=== PATIENT | male | born 1955 | race Caucasian/White ===

== ENCOUNTER 2021-02-20 10:54 | Outpatient (REF) | payer MEDICARE, SELFPAY ==
--- NOTE | ~2021-02-20 | XR_ITS ---
EXAMINATION: XR LUMBOSACRAL SPINE CLINICAL INFORMATION: Lower back pain COMPARISON: None TECHNIQUE: Three views of the lumbosacral spine. FINDINGS: Mild anterior wedging T12-L1 chronic appearing. Advanced spondylosis with bulky spurring with severe disc space narrowing L4-L5 and L5-S1. No significant subluxation. Minor degenerative retrolisthesis L2-L3 4 2 to 3 mm. XR/XR lumbar spine 2-3V IMPRESSION: Degenerative changes and old appearing moderate compression fractures as above.
== END 2021-02-20 10:55 | disposition home or self-care (01) ==
LOC: HO.XRAY 10:54
PROVIDERS: PCP Internal Medicine Rheumatology; Visit Provider Nurse Practitioner Family
DX: M47.816 Spondylosis without myelopathy or radiculopathy, lumbar region (principal)
CPT/HCPCS: 72100; 99202

== ENCOUNTER → 2021-03-26 15:35 | Outpatient (BNVA) | payer MEDICARE, SELFPAY | PROVIDERS: PCP Family Medicine; Visit Provider Nurse Practitioner Family | DX: M47.816 Spondylosis without myelopathy or radiculopathy, lumbar region (principal); M25.50 Pain in unspecified joint; M54.16 Radiculopathy, lumbar region | CPT/HCPCS: 99212 ==

== ENCOUNTER 2021-04-16 13:32 | Outpatient (REF) | payer MEDICARE, SELFPAY ==
--- NOTE | ~2021-04-16 | CT_ITS ---
EXAMINATION: CT LUMBAR SPINE WITHOUT CONTRAST CLINICAL INFORMATION: Radiculopathy. COMPARISON: None TECHNIQUE: Axial 2 mm thin and reformatted 2 mm thin sagittal and coronal images of the lumbar spine were obtained without contrast. This CT examination was performed using dose optimization techniques as appropriate, variously including the following: *Automated exposure control *Adjustment of mA and/or kV according to patient size (this includes techniques or standardized protocols for targeted exams where dose is matched to indication/reason for exam; i.e. extremities or head) *Use of iterative reconstruction technique DLP; 470 mGy-cm FINDINGS: There is normal lumbar lordosis. The vertebral heights are normal. There is mild retrolisthesis of L3 over L4. The rest of the vertebral alignment is normal. There is loss of disc height with vacuum disc phenomena at every disc level. At the L1-L2, L2-L3 disc levels, there is no significant disc bulge, herniation or spinal stenosis. At the L3-L4 disc level, there is mild diffuse bulge without spinal canal stenosis. The neural foramina are patent bilaterally. At the L4-L5 disc level, there is a broad-based diffuse bulge with posterior spondylosis. No evidence of disc herniation or spinal stenosis. There is mild bilateral narrowing of the neural foramina. At the L5-S1 disc level, there is mild disc bulge with spondylosis complex but no spinal canal stenosis. There is mild bilateral narrowing of the neural foramina. There is no lytic or sclerotic process. There is endplate Schmorl's node at the L1, L3 vertebrae. The paravertebral soft tissues are normal. CT/CT lumbar spine wo con IMPRESSION: Degenerative disc changes at every disc level with vacuum disc phenomena and grade 1 retrolisthesis at L3-L4. There are mild degenerative disc bulges with spondylosis complex at the L4-L5 and L5-S1 disc levels. No spinal canal stenosis. However, there is bilateral narrowing of the neural foramina at these 2 disc levels.
== END 2021-04-16 13:33 | disposition home or self-care (01) ==
LOC: HO.CT 13:32
PROVIDERS: PCP Family Medicine; Visit Provider Nurse Practitioner Family
DX: M54.16 Radiculopathy, lumbar region (principal); M53.9 Dorsopathy, unspecified
CPT/HCPCS: 72131

== ENCOUNTER → 2021-05-06 15:39 | Outpatient (BNVA) | payer MEDICARE, SELFPAY | PROVIDERS: PCP Family Medicine; Visit Provider Anesthesiology | DX: M53.9 Dorsopathy, unspecified (principal); M25.50 Pain in unspecified joint; M47.816 Spondylosis without myelopathy or radiculopathy, lumbar region | CPT/HCPCS: 99212 ==